=== PATIENT | female | born 1960 | race Caucasian/White ===

== ENCOUNTER → 2016-05-23 | Outpatient (CLI) | payer OTHER ==
[~2016-05-23] MED LIST: /PANT40TA; /SUCR1TA; ADVA230A INH; ALBU17IN INH; AMIO20TA PO; ASPI1TAB PO; ATOR1TAB19 PO; CIPR500T4; DILT0.05 PO; DILT180C PO; DILT1TAB12 PO; DILT30TA PO; DYAZ37.5; ELIQ5TAB PO; FERR325T; FLAG500T; FLON1SPR; FURO20TA2; FURO40TA2 PO; GEMF600T PO; INDO25CA PO; KCL10IV IV; LORA10TA2 PO; METO25TA PO; METO25TAB PO; MULTIVIT; OMEP20CA3 PO; POTA10CA PO; RANE1000 PO; SIMV20TA2; TAGAMET; TRAM50TA2; ZYLO300T4 PO; [UNRECOGNIZED DRUG - CODE] IV; [UNRECOGNIZED DRUG - OTHER]; [UNRECOGNIZED DRUG - REMARK] IV
== END ==
LOC: M SLEEP 20:02
PROVIDERS: ATTEND Nurse Practitioner Adult Health
DX: G47.33 Obstructive sleep apnea (adult) (pediatric) (principal)

== ENCOUNTER 2018-02-01 08:42 | Day surgery (SDC) | payer MEDICARE ==
[2018-02-01] MEDS ORDERED: LR 1,000 ML IV ×3 (09:00→13:30)
[2018-02-01 09:59] LABS: BEDSIDE GLUCOSE 183 MG/DL (70-105)
[2018-02-01] MEDS ORDERED: ONDANSETRON 4MG/2ML VIAL (J2405) As Ordered (11:02)
[2018-02-01] MEDS ORDERED: fentaNYL 100 MCG/2 ML INJECTION (J3010) As Ordered (11:02)
[2018-02-01] MEDS ORDERED: ROCURONIUM BROMIDE 50 MG/5 ML VIAL As Ordered (11:02)
[2018-02-01] MEDS ORDERED: LIDOCAINE 2% INJ 100 MG/5 ML SDV (FOR ANES.) As Ordered (11:02)
[2018-02-01] MEDS ORDERED: dexameTHASONE 4 MG/ML 1ML VIAL (J1100) As Ordered (11:02)
[2018-02-01] MEDS ORDERED: PROPOFOL 200 MG/20 ML VIAL As Ordered (11:03)
[2018-02-01] MEDS ORDERED: MIDAZOLAM INJ 2 MG/2 ML VIAL (J2250) As Ordered (11:03)
[2018-02-01] MEDS ORDERED: ePHEDrine SULFATE 25 MG/5 ML(5MG/ML) SYRINGE As Ordered (11:08)
[2018-02-01] MEDS ORDERED: PHENYLephrine HCL 500 MCG/5 ML (100MCG/ML) SYRINGE (J2370) As Ordered (11:08)
[2018-02-01] MEDS ORDERED: GLYCOPYRROLATE INJ 0.2 MG/ML 2 ML VIAL As Ordered (11:12)
[2018-02-01] MEDS: BUPIVACAINE HCL 0.25% 30 ML VIAL As Ordered (12:30)
[2018-02-01] MEDS ORDERED: SUCCINYLCHOLINE 100 MG/5 ML SYRINGE (J0330) As Ordered (12:38)
[2018-02-01] MEDS ORDERED: fentaNYL 100 MCG/2 ML INJECTION (J3010) IV (13:30)
[2018-02-01] MEDS ORDERED: ONDANSETRON 4MG/2ML VIAL (J2405) IV (13:30)
[2018-02-01] MEDS ORDERED: MORPHINE 4 MG/ML 1ML VIAL/SYRINGE (J2270) IV ×2 (13:30)
[2018-02-01] MEDS: HYDROMORPHONE HCL 0.5 MG/ 0.5 ML SYRINGE (J1170 PER 1) IV ×2 (13:35→13:40)
== END 2018-02-01 15:35 | disposition home or self-care (01) ==
LOC: M SDC 08:42
DX: G56.22 Lesion of ulnar nerve, left upper limb (principal); G56.02 Carpal tunnel syndrome, left upper limb; I10 Essential (primary) hypertension; I25.10 Atherosclerotic heart disease of native coronary artery without angina pectoris; I48.91 Unspecified atrial fibrillation; I25.2 Old myocardial infarction; E11.9 Type 2 diabetes mellitus without complications; E03.9 Hypothyroidism, unspecified; K21.9 Gastro-esophageal reflux disease without esophagitis; D64.9 Anemia, unspecified; R29.898 Other symptoms and signs involving the musculoskeletal system; M17.12 Unilateral primary osteoarthritis, left knee; M54.9 Dorsalgia, unspecified; R56.9 Unspecified convulsions; G47.33 Obstructive sleep apnea (adult) (pediatric); E66.01 Morbid (severe) obesity due to excess calories; Z68.43 Body mass index [BMI] 50.0-59.9, adult; Z88.6 Allergy status to analgesic agent; Z88.8 Allergy status to other drugs, medicaments and biological substances; Z79.899 Other long term (current) drug therapy; Z79.01 Long term (current) use of anticoagulants; Z79.82 Long term (current) use of aspirin; Z95.5 Presence of coronary angioplasty implant and graft; Z98.51 Tubal ligation status
CPT/HCPCS: 64718

== ENCOUNTER → 2020-12-01 | Outpatient (REF) | payer MEDICARE ==
[~2020-12-01] MED LIST changes: -/PANT40TA; -/SUCR1TA; +ALLE180T33 PO; +ALLO10TA PO; +AMIO200T22 PO; -AMIO20TA PO; -ASPI1TAB PO; +ASPI81TA26 PO; -DILT180C PO; +DILT180C43 PO; -GEMF600T PO; +GEMF600T5 PO; +GLIP2.5T6 PO; +GLIP5TAB8 PO; +INDO-16 PO; -INDO25CA PO; +LABE5INJ IV; +LEVO30TA PO; +LORA-243 PO; -LORA10TA2 PO; +MAGN400C PO; +MELO15TA28 PO; +METO1TAB63 PO; +METO25TA4 PO; -METO25TAB PO; +OMEP1CAP73 PO; -OMEP20CA3 PO; +POTA-136 PO; +POTA-141 PO; -POTA10CA PO; +PROAAER10 INH; +PROT1TAB2; +SERT-138 PO; +SPIR-10 PO; +SUCR1TAB56; -ZYLO300T4 PO; +ZYLO300T6 PO; -[UNRECOGNIZED DRUG - CODE] IV
[2020-12-01 19:38] LABS: INR 1.54
== END ==
LOC: M SHH 17:30
PROVIDERS: ATTEND Internal Medicine Cardiovascular Disease
DX: I48.0 Paroxysmal atrial fibrillation (principal); Z79.01 Long term (current) use of anticoagulants

== ENCOUNTER → 2020-12-08 | Outpatient (REF) | payer MEDICARE ==
[2020-12-08 14:45] LABS: INR 1.87; PROTHROMBIN TIME 21.9 SECONDS (12.7-14.5)
== END ==
LOC: M SHH 14:06
PROVIDERS: ATTEND Internal Medicine Cardiovascular Disease
DX: I48.0 Paroxysmal atrial fibrillation (principal); Z79.01 Long term (current) use of anticoagulants

== ENCOUNTER → 2020-12-15 | Outpatient (REF) | payer MEDICARE | LOC: M SHH 13:59 | PROVIDERS: ATTEND Internal Medicine Cardiovascular Disease | DX: Z53.9 Procedure and treatment not carried out, unspecified reason (principal) ==

== ENCOUNTER → 2020-12-16 | Outpatient (REF) | payer MEDICARE ==
[2020-12-16 15:23] LABS: INR 2.59; PROTHROMBIN TIME 28.1 SECONDS (12.7-14.5)
== END ==
LOC: M SHH 14:42
PROVIDERS: ATTEND Internal Medicine Cardiovascular Disease
DX: I48.0 Paroxysmal atrial fibrillation (principal)